=== PATIENT | male | born 1995 | race Two or more races ===

== ENCOUNTER 2017-06-24 14:48 | Emergency (ER) | payer MEDICAID ==
[~2017-06-24] VITALS: Ht 172.7 cm; Wt 76.7 kg
[2017-06-24 15:02] VITALS: BP 126/78
== END 2017-06-24 17:07 | disposition home or self-care (01) ==
LOC: ER 14:48
DX: J20.9 Acute bronchitis, unspecified (principal)

== ENCOUNTER 2019-12-02 17:54 | Emergency (ER) | payer SELFPAY ==
[~2019-12-02] VITALS: Ht 172.7 cm; Wt 93.0 kg
[2019-12-02 19:31] LABS: Urine Bacteria NONE SEEN /hpf (None Seen); Urine Blood Negative /uL (Negative); Urine Mucus FEW (None Seen); Urine Specific Gravity 1.026 (1.001-1.035); Urine WBC 1 /hpf (0 - 3)
[2019-12-02 19:50] LABS: Alcohol, Urine < 3.0 mg/dL (0-10); Amphetamine Screen, Urine NEGATIVE (NEGATIVE); Barbiturate Scree,Urine NEGATIVE (NEGATIVE); Benzodiazephine Screen, Urine NEGATIVE (NEGATIVE); Cannabinoid Screen, Urine NEGATIVE (NEGATIVE); Cocaine Screen, Urine NEGATIVE (NEGATIVE); Opiate Scree,Urine NEGATIVE (NEGATIVE); Phencyclidine Screen, Urine NEGATIVE (NEGATIVE)
[2019-12-02 22:18] LABS: Basophils # (auto) 0 10 ^3/uL (0-0.2); Basophils % (auto) 0.4 % (0.0-2.0); Eosinophils # (auto) 0.2 10 ^3/uL (0-0.8); Eosinophils % (auto) 2.8 % (0.0-7.0); Hematocrit 44.9 % (41.0-53.0); Hemoglobin 15.2 g/dL (13.5-17.5); Lymphocytes # (auto) 2.6 10 ^3/uL (0.4-5.4); Lymphocytes % (auto) 33.3 % (10.0-50.0); Mean Corpuscular Hemoglobin 31.2 pg (28.0-32.0); Mean Corpuscular Hgb Conc. 33.8 g/dL (32.0-36.0); Mean Corpuscular Volume 92.5 fL (80.0-100.0); Monocytes # (auto) 0.7 10 ^3/uL (0-1.3); Monocytes % (auto) 8.8 % (0.0-12.0); Neutrophils # (auto) 4.3 10 ^3/uL (1.6-8.6); Neutrophils % (auto) 54.7 % (37.0-80.0); Nucleated Red Blood Cells % 0.1 %; Platelet Count (auto) 321 10^3/uL (140-450); Red Blood Cells 4.86 10^6/uL (4.5-5.90); Red Cell Distribution Width 13.1 % (11.8-14.3); White Blood Cell 7.8 10^3/uL (4.4-10.8)
[2019-12-02 22:35] LABS: Albumin 3.9 g/dL (3.4-5.0); BUN/Creatinine Ratio 13.8
[2019-12-02 22:38] LABS: Bilirubin, Total 0.4 mg/dL (0.2-1.0)
[2019-12-02] MEDS ORDERED: cefTRIAXone SOD 1,000 MG VL IM ONE (23:30)
[2019-12-03 01:20] VITALS: BP 117/82
== END 2019-12-03 01:00 | disposition home or self-care (01) ==
LOC: ER 17:54
DX: K52.9 Noninfective gastroenteritis and colitis, unspecified (principal); K29.70 Gastritis, unspecified, without bleeding; K82.8 Other specified diseases of gallbladder
CPT/HCPCS: 36415; 74176; 76705; 80053; 80307; 81001; 82150; 83690; 85025; 96372

== ENCOUNTER 2019-12-19 03:49 | Emergency (ER) | payer MEDICAID ==
[~2019-12-19] VITALS: Ht 172.7 cm; Wt 93.0 kg
[2019-12-19] MEDS ORDERED: SODIUM CHLORIDE 0.9% 1,000 ML IVB ONE (07:08)
[2019-12-19] MEDS ORDERED: PANTOPRAZOLE 40 MG/10 ML VIAL INJ IV ONE (07:15)
[2019-12-19] MEDS ORDERED: ONDANSETRON HCL 4 MG/2 ML VIAL IV ONE (07:15)
[2019-12-19 08:17] VITALS: BP 111/70
[2019-12-19 08:35] LABS: Basophils # (auto) 0 10 ^3/uL (0-0.2); Basophils % (auto) 0.2 % (0.0-2.0); Eosinophils # (auto) 0.1 10 ^3/uL (0-0.8); Eosinophils % (auto) 1.4 % (0.0-7.0); Hematocrit 44.4 % (41.0-53.0); Hemoglobin 15.1 g/dL (13.5-17.5); Lymphocytes # (auto) 1.8 10 ^3/uL (0.4-5.4); Lymphocytes % (auto) 21.1 % (10.0-50.0); Mean Corpuscular Hemoglobin 31.1 pg (28.0-32.0); Mean Corpuscular Volume 91.3 fL (80.0-100.0); Monocytes # (auto) 0.7 10 ^3/uL (0-1.3); Monocytes % (auto) 8.3 % (0.0-12.0); Neutrophils # (auto) 6.1 10 ^3/uL (1.6-8.6); Nucleated Red Blood Cells % 0.1 %; Platelet Count (auto) 317 10^3/uL (140-450); Red Blood Cells 4.87 10^6/uL (4.5-5.90); Red Cell Distribution Width 12.6 % (11.8-14.3); White Blood Cell 8.8 10^3/uL (4.4-10.8)
[2019-12-19 08:38] LABS: Potassium 4.3 mmol/L (3.5-5.1)
[2019-12-19 08:44] LABS: BUN/Creatinine Ratio 12.4; Bilirubin, Total 0.5 mg/dL (0.2-1.0); Calcium 8.6 mg/dL (8.5-10.1); Total Protein 7.6 g/dL (6.4-8.2)
[2019-12-19] MEDS ORDERED: TAMSULOSIN HYDROCHLORIDE 0.4 MG CAP PO ONE (08:45)
[2019-12-19] MEDS ORDERED: KETOROLAC TROMETH 30 MG/ML 1ML VIAL IV ONE (08:45)
== END 2019-12-19 09:34 | disposition home or self-care (01) ==
LOC: ER 03:53
DX: K29.70 Gastritis, unspecified, without bleeding (principal); E86.0 Dehydration; N20.0 Calculus of kidney
CPT/HCPCS: 36415; 74176; 80053; 83690; 85025; 96361; 96374; 96375; 99284; C9113; J1885; J2405; J7030

== ENCOUNTER 2021-05-20 03:53 | Inpatient (IN) | payer MEDICAID ==
[~2021-05-20] VITALS: Ht 172.7 cm; Wt 96.2 kg
[2021-05-20 05:43] LABS: Urine Bacteria NONE SEEN /hpf (None Seen); Urine Blood 2+ /uL (Negative); Urine Mucus FEW (None Seen); Urine Specific Gravity 1.028 (1.001-1.035); Urine WBC 21 /hpf (0 - 3)
[2021-05-20] MEDS ORDERED: CIPR-173 PO (07:08)
[2021-05-20 07:32] LABS: Basophils # (auto) 0.1 10 ^3/uL (0-0.2); Basophils % (auto) 0.9 % (0.0-2.0); Eosinophils # (auto) 0.1 10 ^3/uL (0-0.8); Eosinophils % (auto) 1.4 % (0.0-7.0); Hematocrit 44.8 % (41.0-53.0); Hemoglobin 15.5 g/dL (13.5-17.5); Lymphocytes # (auto) 1.9 10 ^3/uL (0.4-5.4); Lymphocytes % (auto) 25.1 % (10.0-50.0); Mean Corpuscular Hemoglobin 31.1 pg (28.0-32.0); Mean Corpuscular Hgb Conc. 34.7 g/dL (32.0-36.0); Mean Corpuscular Volume 89.7 fL (80.0-100.0); Monocytes # (auto) 0.6 10 ^3/uL (0-1.3); Monocytes % (auto) 8.2 % (0.0-12.0); Neutrophils # (auto) 4.9 10 ^3/uL (1.6-8.6); Neutrophils % (auto) 64.4 % (37.0-80.0); Nucleated Red Blood Cells % 0.2 %; Red Blood Cells 4.99 10^6/uL (4.5-5.90); Red Cell Distribution Width 13.4 % (11.8-14.3); White Blood Cell 7.6 10^3/uL (4.4-10.8)
[2021-05-20 07:49] LABS: Albumin 4.3 g/dL (3.4-5.0); Calcium 9.2 mg/dL (8.5-10.1); Potassium 4.2 mmol/L (3.5-5.1)
[2021-05-20 07:54] LABS: BUN/Creatinine Ratio 13.1; Bilirubin, Total 0.7 mg/dL (0.2-1.0); Total Protein 8.1 g/dL (6.4-8.2)
[2021-05-20 08:43] LABS: Alcohol, Urine < 3.0 mg/dL (0-10); Amphetamine Screen, Urine NEGATIVE (NEGATIVE); Barbiturate Scree,Urine NEGATIVE (NEGATIVE); Benzodiazephine Screen, Urine NEGATIVE (NEGATIVE); Cannabinoid Screen, Urine NEGATIVE (NEGATIVE); Cocaine Screen, Urine NEGATIVE (NEGATIVE); Opiate Scree,Urine NEGATIVE (NEGATIVE); Phencyclidine Screen, Urine NEGATIVE (NEGATIVE)
[2021-05-20] MEDS ORDERED: NITROGLYCERIN 0.4 MG SL TAB SL PRN (11:45)
[2021-05-20] MEDS ORDERED: MORPHINE SULFATE INJECTION 2 MG/ML SYRG IV PRN (11:45)
[2021-05-20 16:26] VITALS: BP 112/71
[2021-05-20] MEDS ORDERED: SODIUM CHLORIDE 0.9% 1,000 ML IV SCH (23:15)
[2021-05-20] MEDS ORDERED: metroNIDAZOLE 500MG/100ML 100 ML IV ONE (23:15)
[2021-05-20] MEDS ORDERED: cefTRIAXone 1GM/50ML D5W 50 ML IV ONE (23:15)
[2021-05-21] MEDS ORDERED: metroNIDAZOLE 500MG/100ML 100 ML IV SCH (06:00)
[2021-05-21] MEDS ORDERED: PANTOPRAZOLE 40 MG TAB PO SCH (10:00)
[2021-05-21] MEDS ORDERED: cefTRIAXone 1GM/50ML D5W 50 ML IV SCH (22:00)
== END 2021-05-20 21:00 | disposition left against medical advice (07) ==
LOC: ER 03:53 → OVERFLOW 11:39
PROVIDERS: ADMIT Internal Medicine; ATTEND Internal Medicine
DX: K81.0 Acute cholecystitis (principal); E66.9 Obesity, unspecified; N39.0 Urinary tract infection, site not specified; Z53.29 Procedure and treatment not carried out because of patient's decision for other reasons; Z20.822 Contact with and (suspected) exposure to COVID-19; F41.9 Anxiety disorder, unspecified; K21.9 Gastro-esophageal reflux disease without esophagitis; Z68.32 Body mass index [BMI] 32.0-32.9, adult
CPT/HCPCS: 36415; 74176; 78226; 80053; 80307; 81001; 83690; 85025; 87086; 87426; G0378